=== PATIENT | female | born 1965 | race Caucasian/White ===

== ENCOUNTER 2020-05-16 14:46 | Emergency (ER) | payer OTHER, MEDICARE, SELFPAY ==
[2020-05-16 15:00] VITALS: BP 127/78; PULSE 83; RESP 18; TEMP 36.7; O2SAT 95; BMI 28.8
--- NOTE | 2020-05-16 15:29 | DI.US.S_ITS ---
PROCEDURE: US ARTERIAL DUPLEX LE RT INDICATIONS: COOL RIGHT LOWER EXTREMITY TECHNIQUE: Color and pulse Doppler interrogation was performed of the right lower extremity arterial system, with image documentation. COMPARISON: [facility], , ARTERIAL LOW.EXTREM.BILATERAL, 10/06/2015, 14:17. FINDINGS: Common femoral artery: 16 cm/sec, with monophasic flow. Deep femoral artery: 14 cm/sec, with monophasic flow. Proximal superficial femoral artery: 19 cm/sec, with monophasic flow. Mid superficial femoral artery: 18 cm/sec, with monophasic flow. Distal superficial femoral artery: 11 cm/sec, with monophasic flow. Popliteal artery: 9 cm/sec, with monophasic/biphasic flow. Posterior tibial artery: 7 cm/sec, with monophasic flow. Anterior tibial artery/dorsalis pedis: 4 cm/sec, with monophasic flow. Em-scale imaging description: Atherosclerotic changes are seen. IMPRESSION: Prominently decreased flow velocities are seen, which are clearly reduced compared to the 2016 examination. There is highly compromised blood flow to the right lower extremity. Low flow velocity and a monophasic waveform can be seen at the level of the common femoral artery, which is reflective of an inflow stenosis. Dictated by: Franco Cannon M.D. on 05/16/2020 at 16:32 Approved by: Franco Cannon M.D. on 05/16/2020 at 16:35
--- NOTE | 2020-05-16 18:18 | ED_ITS ---
HPI - Extremity Problem General Chief complaint: Extremity Problem,Nontraumatic Stated complaint: RIGHT LEG STENT NUMBNESS Time Seen by Provider: 05/16/20 15:29 Source: patient Mode of arrival: Wheelchair Limitations: no limitations History of Present Illness HPI Narrative: Patient complains of right leg coolness/coldness for the past 1 week. Started last Friday. Patient status post bilateral femoral stenting 4 years ago had seen [facility] by Dr. Anuj jansen. He is on daily aspirin. Has been doing well until 1 week ago. Feeling her leg at times getting cold and now feels cold all the time. Arterial Doppler done here. Please see report below. Patient having pain on the right leg at rest and with walking. Related Data Allergies Allergy/AdvReac Type Severity Reaction Status Date / Time No Known Drug Allergies Allergy Verified 05/16/20 15:00 Review of Systems Review of Systems Narrative: GENERAL: Denies chills, fatigue, malaise, fever, sweats. HEENT: Denies sinus pain, ear pain, sore throat, difficulty swallowing, dizziness. RESPIRATORY: Denies dyspnea, cough, wheezing, hemoptysis, sputum. CARDIOVASCULAR: Denies chest pain, palpitations, orthopnea, edema, GASTROINTESTINAL: Denies nausea, vomiting, abdominal pain, diarrhea, constipation, melena. : Denies dysuria, frequency, incontinence, hematuria, urinary retention. MUSCULOSKELETAL: denies weakness, joint pain, or bony pain SKIN: Denies rash, skin lesions, or other NEUROLOGIC: Denies weakness, headache, numbness, change in speech, confusion, seizures, incoordination. PSYCHIATRIC: No concerning psychosocial issues. ROS Unobtainable: All systems reviewed & are unremarkable except as noted in HPI and below Patient History Social History Smoking Status: Current every day smoker Smoking Status: Current every day smoker Substance Use Type: marijuana Exam Narrative Exam Narrative: GENERAL: patient appears stated age. Well-nourished, well-dev eloped patient, in no distress, not toxic HEAD: Atraumatic. Normocephalic. EYES: Pupils equal round and reactive. Extraocular motions intact. No scleral icterus. No injection or drainage. ENT: Nose without bleeding, purulent drainage. Throat without erythema, tonsillar hypertrophy or exudate. Airway patent. NECK: Trachea midline. Non tender CARDIOVASCULAR: Regular rate and rhythm without murmurs, gallops, or rubs. RESPIRATORY: Clear to auscultation. Breath sounds equal bilaterally. No wheezes, rales, or rhonchi. GASTROINTESTINAL: Abdomen soft, non-tender, nondistended. EXTREMITIES: No edema or joint tenderness. Examination right lower extremity. Pants are removed. She is in socks off. Right leg and foot cool to touch compared to left. Unable palpate dorsal pedis and posterior tibial pulses. Light touch intact to leg foot and toes. Coolness distribution from groin to toes. No cyanosis. Nontender to touch NEURO: AOx3. SKIN: No rash or erythema of visible areas PSYCH: Not anxious, is cooperative Initial Vital Signs Initial Vital Signs: Vital Signs Temperature 98.0 F 05/16/20 15:00 Pulse Rate 83 05/16/20 15:00 Respiratory Rate 18 05/16/20 15:00 Blood Pressure 127/78 05/16/20 15:00 Pulse Oximetry 95 05/16/20 15:00 Course Orders Ordered: ED Orders 05/16/20 20:42 Complete Blood Count AUTO DIFF Stat Comprehensive Metabolic Panel Stat Partial Thromboplastin Time Stat Prothrombin Time INR Stat Discontinued Medications Heparin Sodium (Porcine) (Heparin) 6,100 unit 80 unit/kg (6100 unit) IV NOW ONE Stop: 05/16/20 20:29 Last Admin: 05/16/20 21:00 Dose: 6,100 unit Documented by: KEVAN Hydromorphone HCl (Dilaudid) 1 mg IM NOW ONE Stop: 05/16/20 18:51 Last Admin: 05/16/20 19:12 Dose: 1 mg Documented by: HEMALATHA Hydromorphone HCl (Dilaudid) 0.5 mg IV NOW ONE Stop: 05/16/20 21:54 Last Admin: 05/16/20 21:55 Dose: 0.5 mg Documented by: KEVAN Heparin Sodium/Dextrose (Heparin Drip) 25,000 unit in 500 mls @ 27.433 mls/hr IV CONT LUIS M; Protocol Last Admin: 05/16/20 21:02 Dose: 15.75 units/kg/hr, 24 mls/hr Documented by: KEVAN Lorazepam (Ativan) 0.5 mg IV NOW ONE Stop: 05/16/20 20:56 Last Admin: 05/16/20 21:00 Dose: 0.5 mg Documented by: KEVAN Ondansetron HCl (Zofran Odt) 4 mg SL NOW ONE Stop: 05/16/20 18:51 Last Admin: 05/16/20 19:12 Dose: 4 mg Documented by: HEMALATHA Reevaluation(s) Reevaluation #1: No new issues. Patient requesting pain medication. Patient and understand need to transfer to [facility] Emergency Department Time: 18:54 Consultations Consultation #1: s/w dr bragg, [facility] surgeon for dr jansen, send pt to their er now Time: 18:50 Consultation #2: Spoke with Dr. rebolledo emergency department [facility] would except however they are on diversion Time: 19:01 Consultation #3: Spoke with [facility] vascular surgeon Dr. Vázquez, start heparin bolus and drip. Will see patient in the emergency department, s/w dr cunningham in ED...will accept pt Time: 20:30 Vital Signs Vital signs: Vital Signs - 8 hr 05/16/20 15:00 05/16/20 20:11 Temperature 98.0 F Pulse Rate 83 80 Respiratory Rate 18 24 Blood Pressure 127/78 129/73 Pulse Oximetry 95 91 MDM - Extremity (Nontraumatic) Lab Data Result diagrams: 05/16/20 20:42 05/16/20 20:42 Labs: Lab Results 05/16/20 05/16/20 05/16/20 Range/Units 19:30 20:42 20:42 WBC 13.1 H (4.5-11.0) X10^3/uL RBC 5.96 H (4.0-5.2) X10^6/uL Hgb 18.7 H (12.0-16.0) g/dL Hct 57.3 H (36-46) % MCV 96.0 (80-100) fL MCH 31.4 (26-34) PG MCHC 32.7 (30-36) % RDW 17.7 H (11.6-14.8) % Plt Count 259 (150-400) X10^3/uL Neut % (Auto) 80.9 H (50-75) % Lymph % (Auto) 12.0 L (25-40) % [place] % (Auto) 5.6 (3-14) % Eos % (Auto) 0.5 L (2-4) % Baso % (Auto) 1.0 (0-2) % Neut # (Auto) 44062 H (2674-5701) /uL Lymph # (Auto) 1600 (2025-8150) /uL [place] # (Auto) 700 (0-900) /uL Eos # (Auto) 100 (0-450) /uL Baso # (Auto) 100 (0-100) /uL PT 12.3 (10.1-12.7) SECONDS INR 1.1 (0.9-1.3) APTT 36 (26.4-36.2) SECONDS Sodium (137-145) mmol/L Potassium (3.4-5.1) mmol/L Chloride (98-107) mmol/L Carbon Dioxide (22-32) mmol/L BUN (7-17) mg/dL Creatinine (0.52-1.04) mg/dL Estimated GFR (>60) mL/min BUN/Creatinine Ratio (6-22) Glucose (70-100) mg/dL Calcium (8.4-10.2) mg/dL Total Bilirubin (0.2-1.3) mg/dL AST (14-36) IU/L ALT (<35) IU/L Alkaline Phosphatase (38-126) U/L Total Protein (6.3-8.2) g/dL Albumin (3.5-5.0) g/dL Globulin (1.7-4.1) g/dL Albumin/Globulin Ratio (1.0-2.8) COVID-19 PCR Negative (Negative) 05/16/20 Range/Units 20:42 WBC (4.5-11.0) X10^3/uL RBC (4.0-5.2) X10^6/uL Hgb (12.0-16.0) g/dL Hct (36-46) % MCV (80-100) fL MCH (26-34) PG MCHC (30-36) % RDW (11.6-14.8) % Plt Count (150-400) X10^3/uL Neut % (Auto) (50-75) % Lymph % (Auto) (25-40) % [place] % (Auto) (3-14) % Eos % (Auto) (2-4) % Baso % (Auto) (0-2) % Neut # (Auto) (3589-7708) /uL Lymph # (Auto) (4005-7908) /uL [place] # (Auto) (0-900) /uL Eos # (Auto) (0-450) /uL Baso # (Auto) (0-100) /uL PT (10.1-12.7) SECONDS INR (0.9-1.3) APTT (26.4-36.2) SECONDS Sodium 134 L (137-145) mmol/L Potassium 3.2 L (3.4-5.1) mmol/L Chloride 97 L (98-107) mmol/L Carbon Dioxide 24 (22-32) mmol/L BUN 14 (7-17) mg/dL Creatinine 0.77 (0.52-1.04) mg/dL Estimated GFR > 60.0 (>60) mL/min BUN/Creatinine Ratio 18.2 (6-22) Glucose 157 H (70-100) mg/dL Calcium 9.9 (8.4-10.2) mg/dL Total Bilirubin 0.9 (0.2-1.3) mg/dL AST 18 (14-36) IU/L ALT 9 (<35) IU/L Alkaline Phosphatase 89 (38-126) U/L Total Protein 8.7 H (6.3-8.2) g/dL Albumin 4.4 (3.5-5.0) g/dL Globulin 4.3 H (1.7-4.1) g/dL Albumin/Globulin Ratio 1.0 (1.0-2.8) COVID-19 PCR (Negative) Imaging Data Extremity ultrasound: Radiologist's Impression: [address] [address] Ultrasound Report Signed Patient: Keshia Yuen LMR#: [id number] : 1965Acct:[id number] Age/Sex: 54 / FDate of Service: 05/16/20 Loc: ED Accession Number: [id number] Procedure: US arterial duplex LE RT Ordering Provider: Allyson Shetty MD PROCEDURE: US ARTERIAL DUPLEX LE RT INDICATIONS: COOL RIGHT LOWER EXTREMITY TECHNIQUE: Color and pulse Doppler interrogation was performed of the right lower extremity arterial system, with image documentation. COMPARISON: [facility], [place], ARTERIAL LOW.EXTREM.BILATERAL, 10/06/2015, 14:17. FINDINGS: Common femoral artery: 16 cm/sec, with monophasic flow. Deep femoral artery: 14 cm/sec, with monophasic flow. Proximal superficial femoral artery: 19 cm/sec, with monophasic flow. Mid superficial femoral artery: 18 cm/sec, with monophasic flow. Distal superficial femoral artery: 11 cm/sec, with monophasic flow. Popliteal artery: 9 cm/sec, with monophasic/biphasic flow. Posterior tibial artery: 7 cm/sec, with monophasic flow. Anterior tibial artery/dorsalis pedis: 4 cm/sec, with monophasic flow. Em-scale imaging description: Atherosclerotic changes are seen. IMPRESSION: Prominently decreased flow velocities are seen, which are clearly reduced compared to the 2016 examination. There is highly compromised blood flow to the right lower extremity. Low flow velocity and a monophasic waveform can be seen at the level of the common femoral artery, which is reflective of an inflow stenosis. Dictated by: Franco Cannon M.D. on 05/16/2020 at 16:32 Approved by: Franco Cannon M.D. on 05/16/2020 at 16:35 MDM Narrative Medical decision making narrative: No blood work indicated this time. Patient to be transferred immediately to the emergency department at [facility] at [facility]. We are trying [facility]. Time 7:20 p.m. Discharge Plan Departure Patient Disposition: [facility] Clinical Impression: Arterial occlusion, lower extremity Discharge Date/Time: 05/16/20 21:48 Referrals: Maicol Jolly MD [Primary Care Provider] -
[2020-05-16] MEDS: ONDANSETRON 4 MG ODT SL (19:12)
[2020-05-16] MEDS: HYDROMORPHONE 1 MG INJ IM (19:12)
[2020-05-16 20:11] VITALS: BP 129/73; PULSE 80; RESP 24; O2SAT 91
[2020-05-16 20:48] LABS: COVID19 -Nasal RAPID Negative (Negative)
[2020-05-16 20:54] LABS: Add Manual Diff / Slide Review NO; Basophils Absolute Auto 100 /uL (0-100); Eosinophils Absolute Auto 100 /uL (0-450); Eosinophils Percent Auto 0.5 % (2-4); Hematocrit 57.3 % (36-46); Hemoglobin 18.7 g/dL (12.0-16.0); Lymphocytes Absolute Auto 1600 /uL (1100-4500); Mean Corpuscular HGB Conc 32.7 % (30-36); Mean Corpuscular Hemoglobin 31.4 PG (26-34); Monocytes Absolute Auto 700 /uL (0-900); Monocytes Percent Auto 5.6 % (3-14); Neutrophils Absolute Auto 10600 /uL (1500-7000); Neutrophils Percent Auto 80.9 % (50-75); Platelet Count 259 X10^3/uL (150-400); Red Blood Cell Count 5.96 X10^6/uL (4.0-5.2); Red Cell Distribution Width 17.7 % (11.6-14.8); White Blood Cell Count 13.1 X10^3/uL (4.5-11.0)
[2020-05-16 20:58] LABS: INR 1.1 (0.9-1.3); Prothrombin Time 12.3 SECONDS (10.1-12.7)
[2020-05-16] MEDS: LORazepam 2 MG/ML INJ 0.5 MG IV (21:00)
[2020-05-16] MEDS: HEPARIN 5,000 UNIT/ML VIAL 6100 UNIT IV (21:00)
[2020-05-16 21:01] LABS: PTT Partial Thromboplastin Tim 36 SECONDS (26.4-36.2)
[2020-05-16 21:02] LABS: Alanine Aminotransferase 9 IU/L (<35); Albumin 4.4 g/dL (3.5-5.0); Alkaline Phosphatase 89 U/L (38-126); Aspartate Aminotransferase 18 IU/L (14-36); BUN Creatinine Ratio 18.2 (6-22); Bilirubin Total 0.9 mg/dL (0.2-1.3); Blood Urea Nitrogen 14 mg/dL (7-17); Calcium 9.9 mg/dL (8.4-10.2); Carbon Dioxide 24 mmol/L (22-32); Chloride 97 mmol/L (98-107); Estimated Glomerular Filt Rate > 60.0 mL/min (>60); Globulin 4.3 g/dL (1.7-4.1); Glucose 157 mg/dL (70-100); HEMOLYSIS 40 (0-50); Potassium 3.2 mmol/L (3.4-5.1); Sodium 134 mmol/L (137-145); Total Protein 8.7 g/dL (6.3-8.2)
[2020-05-16] MEDS: HEPARIN DRIP 25,000 UNIT/500 ML IV.SOLN 24 UNIT IV (21:02)
[2020-05-16] MEDS: HYDROMORPHONE 0.5 MG INJ IV (21:55)
== END 2020-05-16 21:48 | disposition short-term general hospital (02) ==
PROVIDERS: Emergency Provider Emergency Medicine; Family Provider Family Medicine; PCP Family Medicine
DX: I70.209 Unspecified atherosclerosis of native arteries of extremities, unspecified extremity (principal); Z95.828 Presence of other vascular implants and grafts; M79.604 Pain in right leg
CPT/HCPCS: 36415; 80053; 85025; 85610; 85730; 87635; 93926; 96365; 96372; 96375; 99284; J1170; J1644; J2060

== ENCOUNTER 2024-08-28 11:51 | Emergency (ER) | payer MEDICARE, OTHER, SELFPAY ==
[2024-08-28] VITALS (14 sets, daily range): BP systolic 140–192; BP diastolic 68–92; PULSE 55–74; RESP 11–32; TEMP 36.9; O2SAT 83–93; BMI 24.3
--- NOTE | 2024-08-28 12:22 | ED.GENADULT ---
HPI - General Adult General Chief complaint: Shortness of Breath/Dyspnea Stated complaint: cold symptoms Time Seen by Provider: 08/28/24 12:14 History of Present Illness HPI narrative: 58-year-old woman with a history of COPD with chronic hypoxic respiratory failure, prior stroke, continued tobacco use hypertension, depression who presents today with increasing cough and shortness of breath. Symptoms began about August 17 and have significantly worsened over the last 3 days. She is increased her home oxygen usually at 2 L up to 3 L, notes that she has more sputum than baseline. She has not recently been on antibiotics or steroids. Continues to use her albuterol inhaler and daily trilogy. She has not having any palpitations, abdominal pain, diarrhea or lower extremity edema Related Data Home Medications Medication Instructions Recorded Confirmed amlodipine 5 mg tablet (Norvasc) 5 mg PO DAILY 06/27/21 10/28/23 aspirin 81 mg capsule 81 mg PO DAILY 06/27/21 10/28/23 atenolol 50 mg tablet 50 mg DAILY 06/27/21 10/28/23 losartan 100 mg tablet 100 mg PO DAILY 06/27/21 10/28/23 potassium 75 mg tablet 50 mg PO DAILY 06/27/21 09/12/21 ergocalciferol (vitamin D2) 1,000 4,000 PO 05/22/22 10/28/23 unit capsule paroxetine HCl 40 mg tablet (Paxil) 20 mg PO DAILY 10/28/23 10/28/23 Previous Rx's Medication Instructions Recorded fluticasone fur. 200 mcg-umeclid 1 inh inhalation DAILY #60 ea 10/28/23 62.5 mcg-vilant 25 mcg inhalat.powder (Trelegy Ellipta) amoxicillin 875 mg-potassium 1 tab PO BID #14 tabs 08/28/24 clavulanate 125 mg tablet azithromycin 250 mg tablet 250 mg PO DAILY 6 days #6 tabs 08/28/24 prednisone 20 mg tablet 40 mg (2 x 20 mg) PO DAILY #10 tabs 08/28/24 Allergies Allergy/AdvReac Type Severity Reaction Status Date / Time No Known Drug Allergies Allergy Verified 10/28/23 08:46 Review of Systems Review of Systems Narrative: General: Healthy appearing, in no acute distress. Able to give a complete and coherent history. Well-nourished well-developed HEENT: Moist mucous membranes, normal sclera with reactive pupils, Neck: No JVD, supple Respiratory: Lungs are clear to auscultation, no wheezing no rales no rhonchi. Full and symmetrical air movement Cardiac: Regular rate and rhythm no murmurs no bruits Abdomen: Soft, nontender, good bowel tones, no flank pain Skin: Warm and dry, no rashes Neurologic: Grossly neurologically intact with no obvious asymmetries or abnormalities Extremities: No trauma, well perfused Psych: Cooperative, appropriate insight and affect Patient History Social History Smoking Status: Current every day smoker Smoking Status: Current every day smoker Exam Initial Vital Signs Initial Vital Signs: Vital Signs Temperature 98.5 F 08/28/24 11:53 Pulse Rate 74 08/28/24 11:53 Respiratory Rate 20 08/28/24 11:53 Blood Pressure 164/87 H 08/28/24 11:53 Pulse Oximetry 83 L 08/28/24 11:53 Oxygen Delivery Method Nasal Cannula 08/28/24 11:53 Oxygen Flow Rate 3 08/28/24 11:53 General: Chronically ill-appearing, cough, hoarse voice able to speak in complete sentences appears uncomfortable but not toxic HEENT: Dry mucous membranes, normal sclera with reactive pupils, Neck: No JVD, no cervical adenopathy Respiratory: Lungs with wheezing in all lung martínez and rhonchi throughout the entire left lung, she does have symmetrical air movement and no acute retractions Cardiac: Regular rate and rhythm no murmurs no bruits Abdomen: Soft, nontender, good bowel tones, no flank pain Skin: Warm and dry, no rashes Neurologic: Grossly neurologically intact with no obvious asymmetries or abnormalities Extremities: No trauma, no lower extremity edema Psych: Cooperative, appropriate insight and affect Course Orders Ordered: ED Orders 08/28/24 12:47 XR chest 1V Stat 08/28/24 12:49 EKG-12 Lead Stat 08/28/24 12:52 UA Complete [Urinalysis and Microscopic] Stat Urine Culture Stat 08/28/24 13:05 Blood Culture Stat Complete Blood Count AUTO DIFF Stat Comprehensive Metabolic Panel Stat Lactate (Lactic Acid) Stat NT-proBNP (BNP-Adult 18+) Stat Procalcitonin Stat Troponin I Stat Discontinued Medications Albuterol/Ipratropium (Albuterol/Ipratropium 3 Ml Ampul) 6 ml INH NOW ONE Stop: 08/28/24 12:48 Last Admin: 08/28/24 13:09 Dose: 6 ml Documented By: ANTHONY Magnesium Sulfate (Magnesium Sulfate) 2 gm in 50 mls @ 600 mls/hr IV NOW ONE Stop: 08/28/24 12:52 Last Infusion: 08/28/24 13:40 Dose: Infused Documented By: YOLANDA Co-signed By: ANTHONY Admin: 08/28/24 13:20 Dose: 600 mls/hr Documented By: YOLANDA Co-signed By: ANTHONY Ceftriaxone Sodium 2,000 mg/ (Sodium Chloride) 100 mls @ 200 mls/hr IV NOW ONE Stop: 08/28/24 12:48 Last Infusion: 08/28/24 14:17 Dose: Infused Documented By: Admin: 08/28/24 13:43 Dose: 200 mls/hr Documented By: YOLANDA Azithromycin 500 mg/ Dextrose 250 mls @ 250 mls/hr IV NOW ONE Stop: 08/28/24 12:48 Last Admin: 08/28/24 14:18 Dose: 250 mls/hr Documented By: YOLANDA Methylprednisolone (Methylprednisolone 125 Mg/2 Ml Vial) 125 mg IV NOW ONE Stop: 08/28/24 12:48 Last Admin: 08/28/24 13:16 Dose: 125 mg Documented By: YOLANDA Vital Signs Vital signs: Vital Signs - 8 hr 08/28/24 11:53 08/28/24 12:04 08/28/24 12:05 Temperature 98.5 F Pulse Rate 74 66 Respiratory Rate 20 15 Blood Pressure 164/87 H 192/92 H Pulse Oximetry 83 L Oxygen Delivery Method Nasal Cannula Oxygen Flow Rate 3 08/28/24 12:05 08/28/24 12:30 08/28/24 12:31 Temperature Pulse Rate 65 63 60 Respiratory Rate 15 11 L 22 Blood Pressure Pulse Oximetry 93 91 92 Oxygen Delivery Method Nasal Cannula Oxygen Flow Rate 3 08/28/24 12:31 08/28/24 13:00 08/28/24 13:23 Temperature Pulse Rate 60 64 Respiratory Rate 17 20 Blood Pressure 184/88 H Pulse Oximetry 92 90 L Oxygen Delivery Method Nasal Cannula Oxygen Flow Rate 3 08/28/24 13:30 08/28/24 13:38 08/28/24 13:38 Temperature Pulse Rate 72 65 Respiratory Rate 18 17 Blood Pressure 151/70 H Pulse Oximetry 90 L 91 Oxygen Delivery Method Nasal Cannula Nasal Cannula Oxygen Flow Rate 3 3 Medical Decision Making Lab Data 08/28/24 13:05 08/28/24 13:05 Labs: Lab Results 08/28/24 08/28/24 Range/Units 12:52 13:05 WBC 10.7 (4.5-11.0) X10^3/uL RBC 5.82 H (4.0-5.2) X10^6/uL Hgb 14.4 (12.0-16.0) g/dL Hct 46.3 H (36-46) % MCV 79.7 L (80-100) fL MCH 24.7 L (26-34) PG MCHC 31.0 (30-36) % RDW 18.4 H (11.6-14.8) % Plt Count 264 (150-400) X10^3/uL Neut % (Auto) 79.0 H (50-75) % Lymph % (Auto) 15.2 L (25-40) % [place] % (Auto) 4.1 (3-14) % Eos % (Auto) 0.2 L (2-4) % Baso % (Auto) 1.5 (0-2) % Neut # (Auto) 8500 H (0158-6351) /uL Lymph # (Auto) 1600 (3403-4253) /uL [place] # (Auto) 400 (0-900) /uL Eos # (Auto) 0 (0-450) /uL Baso # (Auto) 200 H (0-100) /uL Sodium 137 (137-145) mmol/L Potassium 3.9 (3.4-5.1) mmol/L Chloride 104 (98-107) mmol/L Carbon Dioxide 29 (22-32) mmol/L BUN 11 (7-17) mg/dL Creatinine 0.75 (0.52-1.04) mg/dL Estimated GFR > 60 (>60) mL/min BUN/Creatinine Ratio 14.7 (6-22) Glucose 117 H (70-100) mg/dL Lactate 1.2 (0.7-2.1) mmol/L Calcium 9.8 (8.4-10.2) mg/dL Total Bilirubin 0.7 (0.2-1.3) mg/dL AST 22 (14-36) IU/L ALT 11 (<35) IU/L Alkaline Phosphatase 92 (38-126) U/L Troponin I < 0.012 (0.01-0.034) ng/mL NT-Pro-B Natriuret Pep 134 H (<125) pg/mL Total Protein 8.0 (6.3-8.2) g/dL Albumin 4.1 (3.5-5.0) g/dL Globulin 3.9 (1.7-4.1) g/dL Albumin/Globulin Ratio 1.1 (1.0-2.8) Procalcitonin 0.032 (<0.5) ng/mL Urine Color Yellow Urine Appearance Clear Urine pH 6.5 (4.5-8.0) Ur Specific [place] <=1.005 (1.000-1.035) Urine Protein Negative (Negative) Urine Glucose (UA) Negative (Negative) g/dL Urine Ketones Negative (NEGATIVE) Urine Occult Blood Negative (Negative) Urine Nitrate Negative (Negative) Urine Bilirubin Negative (NEGATIVE) Urine Urobilinogen 0.2 (0.2) E.U./dL Ur Leukocyte Esterase 1+ H (NEGATIVE) Urine RBC 0-1/hpf (0-5/HPF) Urine WBC 0-1/hpf (0-5/HPF) Ur Squamous Epith Cells 1-5 /hpf (0-5/HPF) Urine Bacteria Occasional (0-1) (None) Ur Culture Indicated? 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, coronary artery disease for which he takes daily aspirin Data collected from: patient, partner Medical records reviewed: Oncology notes from 2021 and 2020 are reviewed Differential considered: Acute COPD exacerbation, pneumothorax, pneumonia, bronchitis, pleural effusion, congestive heart failure, acute coronary syndrome, PE is less likely based on her anticoagulation and vital signs Exam documented above, pertinent findings include: Patient has significant wheeze but is able to speak in full sentences, comfortable on 3 L, rhonchi throughout left lung martínez and moderate wheeze bilaterally. No retractions appreciated Lab Test results independently reviewed as above. Pertinent findings: CBC does not show leukocytosis, H and H actually better than her baseline at 14.4 and 46.3 Chemistries are reassuring with normal renal function Troponin is undetectable proBNP is low Procalcitonin is low Lactic acid is not elevated Independently reviewed EKG: Sinus rhythm at rate of 60. Left axis deviation, no acute ischemia Imaging studies independently reviewed: Chest x-ray shows no significant cardiomegaly, no pneumothorax increased findings left lower lobe consistent developing left lower lobe pneumonia Treatments: DuoNeb x2, fluids, Solu-Medrol, magnesium, ceftriaxone, azithromycin Discussion: 58-year-old woman with oxygen-dependent COPD increased upper respiratory symptoms over the last 10 days in the last 3 days with symptoms concerning for developing bacterial pneumonia, rhonchi consistent with pneumonia appreciated on physical exam. She is responded nicely to fluids, magnesium, Solu-Medrol, nebulizer and has been given ceftriaxone and azithromycin for presumed community-acquired pneumonia. There was no evidence of sepsis, worsening respiratory failure that would require hospitalization, acute coronary syndrome, pulmonary embolism, pneumothorax or pulmonary embolism. Findings reviewed with the patient, at this point there was no indication for hospitalization or additional imaging studies she is safe for discharge Discharge Plan Departure Patient Disposition: Home Clinical Impression: Bacterial pneumonia, Acute exacerbation of chronic obstructive pulmonary disease Instructions: DI for Chronic Obstructive Pulmonary Disease, DI for Pneumonia -- Adult Activity Restrictions/Additional Instructions: Thank you for coming in today I believe your symptoms started with a viral syndrome that major COPD worse and over the last couple of days bacteria has taken advantage you and you now also have a left-sided bacterial pneumonia. Fortunately, you are not septic, there was no signs of heart attack, heart failure, collapsed lung or findings that would require hospitalizations today In the emergency department you were given fluids, steroids, antibiotics, IV magnesium and nebulized albuterol and ipratropium I believe it is safe for you to go home. You can use 2-3 L of oxygen is needed for comfort, if you need to continue increasing this you need to return to the ER I have given you a prescription for 4 additional days of azithromycin and 7 days of Augmentin to make sure that were appropriately treating the bacterial infection. I have also given you 5 days of steroids to help with the acute COPD exacerbation. I would recommend using your albuterol inhaler with spacer 2 puffs at least 3 times a day Prescriptions were electronically transmitted to [facility] in [place] If you find that you are getting worse or develop any new symptoms, please feel free to return to the emergency department for further evaluation. Prescriptions: New amoxicillin-pot clavulanate 875-125 mg tablet 1 tab PO BID Qty: 14 0RF azithromycin 250 mg tablet 250 mg PO DAILY 6 Days Qty: 6 0RF Rx Instructions: start on day 2 of therapy prednisone 20 mg tablet 40 mg PO DAILY Qty: 10 0RF No Action amlodipine [Norvasc] 5 mg Tablet 5 mg PO DAILY potassium 75 mg Tablet 50 mg PO DAILY losartan 100 mg Tablet 100 mg PO DAILY atenolol 50 mg Tablet 50 mg DAILY aspirin 81 mg Capsule 81 mg PO DAILY Vitamin D2 1,000 unit Capsule 4,000 PO paroxetine HCl [Paxil] 40 mg tablet 20 mg PO DAILY Trelegy Ellipta 200-62.5-25 mcg blister with device 1 inh inhalation DAILY Qty: 60 11RF Rx Instructions: rinse mouth with water, gargle and spit after each use Referrals: Lj Shen MD [Primary Care Provider] - Stand Alone Forms: Patient Portal/API/Survey
--- NOTE | 2024-08-28 12:47 | DI.RAD.S_ITS ---
PROCEDURE: XR CHEST 1V INDICATIONS: cough TECHNIQUE: One view of the chest was acquired. COMPARISON: [facility], , CHEST 1 VIEW, 02/09/2016, 20:04. FINDINGS: Surgical changes and devices: None. Lungs and pleura: Hyperinflation and chronic interstitial changes. Trace left basilar atelectasis and or infiltrate. Atherosclerotic calcification in the abdominal aorta noted without evidence of aneurysm. Mediastinum: Mediastinal contours appear normal. Heart size is normal. Bones and chest wall: No suspicious bony lesions. Overlying soft tissues appear unremarkable. IMPRESSION: Trace left basilar atelectasis and or infiltrate Approved by: Andi Marino M.D. on 08/28/2024 at 13:36
[2024-08-28] MEDS: ALBUTEROL/IPRATROPIUM 3 ML AMPUL 6 ML INH (13:09)
--- NOTE | 2024-08-28 13:10 | EKG_ITS ---
[facility] [id number] [place] [address] Test Date: 2024-08-28 Pat Name: Keshia Yuen Department: 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
[2024-08-28] MEDS: methylPREDNISolone 125 MG/2 ML VIAL IV (13:16)
[2024-08-28 13:18] LABS: Add Manual Diff / Slide Review NO; Basophils Absolute Auto 200 /uL (0-100); Basophils Percent Auto 1.5 % (0-2); Eosinophils Absolute Auto 0 /uL (0-450); Eosinophils Percent Auto 0.2 % (2-4); Hematocrit 46.3 % (36-46); Hemoglobin 14.4 g/dL (12.0-16.0); Lymphocytes Absolute Auto 1600 /uL (1100-4500); Lymphocytes Percent Auto 15.2 % (25-40); Mean Corpuscular Hemoglobin 24.7 PG (26-34); Mean Corpuscular Volume 79.7 fL (80-100); Monocytes Absolute Auto 400 /uL (0-900); Monocytes Percent Auto 4.1 % (3-14); Neutrophils Absolute Auto 8500 /uL (1500-7000); Platelet Count 264 X10^3/uL (150-400); Red Blood Cell Count 5.82 X10^6/uL (4.0-5.2); Red Cell Distribution Width 18.4 % (11.6-14.8); White Blood Cell Count 10.7 X10^3/uL (4.5-11.0)
[2024-08-28] MEDS: MAGNESIUM SULFATE 2 GM/50 ML PIGGYBACK IV (13:20)
[2024-08-28 13:39] LABS: Appearance Urine UA CLEAR; Bilirubin Urine UA NEGATIVE (NEGATIVE); Color Urine UA YELLOW; Glucose Urine UA NEGATIVE (Negative); Ketones Urine UA NEGATIVE (NEGATIVE); Leukocyte Esterase Urine UA 1+ (NEGATIVE); Nitrite Urine UA NEGATIVE (Negative); Occult Blood Urine UA NEGATIVE (Negative); Protein Urine UA NEGATIVE (Negative); Specific Gravity Urine UA <=1.005 (1.000-1.035); Urobilinogen Urine UA 0.2 E.U./dL (0.2)
[2024-08-28 13:40] LABS: Alanine Aminotransferase 11 IU/L (<35); Albumin 4.1 g/dL (3.5-5.0); Albumin Globulin Ratio 1.1 (1.0-2.8); Alkaline Phosphatase 92 U/L (38-126); Aspartate Aminotransferase 22 IU/L (14-36); BUN Creatinine Ratio 14.7 (6-22); Bilirubin Total 0.7 mg/dL (0.2-1.3); Blood Urea Nitrogen 11 mg/dL (7-17); Calcium 9.8 mg/dL (8.4-10.2); Carbon Dioxide 29 mmol/L (22-32); Chloride 104 mmol/L (98-107); Estimated Glomerular Filt Rate > 60 mL/min (>60); Globulin 3.9 g/dL (1.7-4.1); Glucose 117 mg/dL (70-100); HEMOLYSIS < 15 (0-50); Potassium 3.9 mmol/L (3.4-5.1); Sodium 137 mmol/L (137-145)
[2024-08-28 13:41] LABS: Lactate (Lactic Acid) 1.2 mmol/L (0.7-2.1)
[2024-08-28 13:42] LABS: pH Urine UA 6.5 (4.5-8.0)
[2024-08-28] MEDS: cefTRIAXone 2,000 MG in SODIUM CHLORIDE 0.9% 100 ML 200 MG IV (13:43)
[2024-08-28 13:47] LABS: RBC Urine 0-1/HPF (0-5/HPF); Urine Volume 10mL (spun)
[2024-08-28 13:48] LABS: Bacteria Urine Occasional (0-1); Culture Indicated Urine Specimen Cultured; Squamous Epithelial Cell Urine 1-5 /HPF (0-5/HPF); WBC Urine 0-1/HPF (0-5/HPF)
[2024-08-28 13:52] LABS: NT-proBNP (BNP-Adult 18+) 134 pg/mL (<125); Troponin I < 0.012 ng/mL (0.01-0.034)
[2024-08-28 13:57] LABS: Procalcitonin 0.032 ng/mL (<0.5)
[2024-08-28] MEDS: AZITHROMYCIN 500 MG in DEXTROSE 5% IN WATER 250 ML 250 MG IV (14:18)
== END 2024-08-28 15:43 | disposition home or self-care (01) ==
PROVIDERS: Emergency Provider Emergency Medicine; PCP Family Medicine
DX: J18.9 Pneumonia, unspecified organism (principal); J44.1 Chronic obstructive pulmonary disease with (acute) exacerbation; R06.02 Shortness of breath
CPT/HCPCS: 36415; 71045; 80053; 81001; 83605; 83880; 84145; 84484; 85025; 87040; 87086; 93005; 93010; 94640; 96365; 96367; 96375; 99285; J0696; J2919; J3475

== ENCOUNTER → 2025-06-30 09:48 | Outpatient (CLI) | payer MEDICARE, OTHER, SELFPAY ==
--- NOTE | 2025-06-30 09:51 | DI.CT.S_ITS ---
PROCEDURE: CT LUNG LOW DOSE SCREENING INDICATIONS: screening TECHNIQUE: Noncontrast 2.0-2.5 mm thick sections acquired from the pulmonary apices to the posterior costophrenic angles. 7 mm thick axial MIP, and 5 mm coronal and sagittal reformats were then acquired. For radiation dose reduction, the following was used: automated exposure control, adjustment of mA and/or kV according to patient size. COMPARISON: None. FINDINGS: Image quality: Diagnostic. Lower Neck: No enlarged lymph nodes. Thyroid: No thyroid nodules which require sonographic follow up, per consensus guidelines. Axillae: No enlarged lymph nodes. Chest Wall: Unremarkable. Bones: Unremarkable. Lungs and Pleura: No pneumothorax or pleural effusions. Subsegmental atelectasis, most pronounced in the medial right upper lobe. Scattered pulmonary nodules measuring up to 6 mm in the right lower lobe (3/184, MIP image 94). Heart: Heart size is normal. No pericardial effusion. Triple-vessel coronary artery calcifications. Thoracic Vessels: Aortic arch is calcified. The aorta and pulmonary arteries demonstrate normal size. Mediastinum and [place]: No enlarged lymph nodes. Esophagus: No wall thickening. No hiatal hernia. Upper Abdomen: Visualized upper abdomen solid organs and bowel loops appear normal. IMPRESSION: Right lower lobe 6 mm solid pulmonary nodule. Additional smaller scattered nodules. LUNG-RADS 3; recommend follow-up low-dose CT chest in 6 months. Clinically Significant Non-pulmonary Findings: Moderate to severe coronary artery calcifications. Consider cardiology referral. Approved by: Francesca Gaines M.D.,Ph.D. on 07/04/2025 at 0:29
== END ==
LOC: CT 09:50
PROVIDERS: Family Provider Family Medicine; PCP Family Medicine; Referring Provider Internal Medicine; Visit Provider Internal Medicine
DX: Z12.2 Encounter for screening for malignant neoplasm of respiratory organs (principal); R91.8 Other nonspecific abnormal finding of lung field; J98.11 Atelectasis; I25.10 Atherosclerotic heart disease of native coronary artery without angina pectoris; F17.219 Nicotine dependence, cigarettes, with unspecified nicotine-induced disorders
CPT/HCPCS: 71271